=== PATIENT | female | born 1985 | race Caucasian/White ===

== ENCOUNTER 2017-07-21 12:12 | Emergency (ER) | payer OTHER ==
[2017-07-21] MEDS ORDERED: Sodium Chloride 0.9% 1000 ML 1,000 ML IV STA (13:12)
[2017-07-21] MEDS ORDERED: GI COCKTAIL 45 ML (Maalox/Lidocaine) PO ONE (13:12)
[2017-07-21] MEDS ORDERED: Zofran 4 MG/2 ML VIAL IV ONE (13:12)
[2017-07-21] MEDS ORDERED: Pepcid 20 MG VIAL IV ONE ×2 (13:12→13:34)
--- NOTE | 2017-07-21 13:12 | ERPHSYRPT ---
- History of Present Illness Time Seen by Provider: 07/21/17 13:02 Historian: patient Exam Limitations: no limitations Patient Subjective Stated Complaint: mid abd pain for three weeks. also having nausea with it. pain radiates into back and right shoulder. Triage Nursing Assessment: ambulating per self. skin w/d, color flushed. resp easy. holding abd. Physician History: The patient is a 32-year-old female complaining of daily intermittent epigastric pain for 3 weeks. The pain can occur 2-3 times a day. It can last for 30-60 minutes. The pain is relieved somewhat by eating. She is nauseated. Somedays she vomits. She has no diarrhea. She denies fever or chills. If she takes Tums, the pain is relieved for a brief period. She does not drink alcohol. Her past medical history is significant for "removal of her tubes". Timing/Duration: week(s) (3) Activities at Onset: none Quality: aching Abdominal Pain Onset Location: epigastric Pain Radiation: back Severity of Pain-Max: moderate Severity of Pain-Current: mild Modifying Factors: Improves With: eating, other (Tums) Associated Symptoms: nausea, vomiting, No heartburn Previous symptoms: no prior history Allergies/Adverse Reactions: No Known Drug Allergies Allergy (Unverified 07/21/17 12:26) Hx Tetanus, Diphtheria Vaccination/Date Given: Yes Hx Influenza Vaccination/Date Given: No Hx Pneumococcal Vaccination/Date Given: No - Review of Systems Constitutional: No Fever, No Chills Eyes: No Symptoms Ears, Nose, & Throat: No Symptoms Respiratory: No Cough, No Dyspnea Cardiac: No Chest Pain, No Edema, No Syncope Abdominal/Gastrointestinal: Abdominal Pain, Nausea, Vomiting, No Diarrhea Genitourinary Symptoms: No Dysuria Musculoskeletal: No Back Pain, No Neck Pain Skin: No Rash Neurological: No Dizziness, No Focal Weakness, No Sensory Changes Psychological: No Symptoms Endocrine: No Symptoms Hematologic/Lymphatic: No Symptoms Immunological/Allergic: No Symptoms All Other Systems: Reviewed and Negative - Past Medical History Pertinent Past Medical History: No - Past Surgical History Past Surgical History: No - Social History Smoking Status: Never smoker Exposure to second hand smoke: No Drug Use: none Patient Lives Alone: No - Female History Hx Last Menstrual Period: 06/23/17 Hx Now: No - Nursing Vital Signs Nursing Vital Signs: Initial Vital Signs Temperature 97.6 F 07/21/17 12:15 Pulse Rate 102 H 07/21/17 12:15 Respiratory Rate 18 07/21/17 12:15 Blood Pressure 152/103 07/21/17 12:15 O2 Sat by Pulse Oximetry 98 07/21/17 12:15 Pain Scale Pain Intensity 8 - Physical Exam General Appearance: no apparent distress, alert Eye Exam: PERRL/EOMI, eyes nml inspection Ears, Nose, Throat Exam: normal ENT inspection, pharynx normal, moist mucous membranes Neck Exam: normal inspection, non-tender, supple, full range of motion Respiratory Exam: normal breath sounds, lungs clear, No respiratory distress Cardiovascular Exam: regular rate/rhythm, normal heart sounds Gastrointestinal/Abdomen Exam: tenderness (epigastric) Pelvic Exam: not done Rectal Exam: not done Back Exam: normal inspection, normal range of motion, No CVA tenderness, No vertebral tenderness Extremity Exam: normal inspection, normal range of motion, pelvis stable Neurologic Exam: alert, oriented x 3, cooperative, normal mood/affect, nml cerebellar function, sensation nml, No motor deficits Skin Exam: normal color, warm, dry SpO2 Interpretation: normal SpO2: 98 Oxygen Delivery: Room Air - Radiology Exams Chest X-ray Interpretation: Reviewed by me, Teleradiologist Report, Negative (per Dr Henley) Abdomen X-ray Interpretation: Reviewed by me, Teleradiologist Report, Negative, Other ( cholelithiasis per Dr Henley) Ordered Tests: Active Orders 24 hr Category Date Time Status IV Insertion STAT Care 07/21/17 13:12 Active GALLBLADDER [US] Stat Exams 07/21/17 14:23 Completed OBSTR/ACUTE ABDOMEN SERIES Stat Exams 07/21/17 13:13 Completed AMYLASE Stat Lab 07/21/17 13:12 Completed CBC W DIFF Stat Lab 07/21/17 13:12 Completed CMP Stat Lab 07/21/17 13:12 Completed CULTURE,URINE Stat Lab 07/21/17 13:12 Received HCG QUALITATIVE,SERUM Stat Lab 07/21/17 13:12 Completed LIPASE Stat Lab 07/21/17 13:12 Completed Lactic Acid Stat Lab 07/21/17 13:23 Completed UA W/ MICROSCOPIC Stat Lab 07/21/17 13:12 Completed Medication Summary Discontinued Medications Generic Name Dose Route Start Last Admin Trade Name Freq PRN Reason Stop Dose Admin Al Hydrox/Mg Hydrox/Simethicone Confirm 07/21/17 13:35 Maalox Es 30 Ml Unit Dose Administered 07/21/17 13:36 Dose 30 ml .ROUTE .STK-MED ONE Famotidine 20 mg 07/21/17 13:12 07/21/17 13:37 Pepcid 20 Mg Vial IV 07/21/17 13:13 20 mg STAT ONE Administration Famotidine Confirm 07/21/17 13:34 Pepcid 20 Mg Vial Administered 07/21/17 13:35 Dose 20 mg IV .STK-MED ONE Sodium Chloride 1,000 mls @ 999 mls/hr 07/21/17 13:12 07/21/17 13:37 Sodium Chloride 0.9% 1000 Ml IV 07/21/17 14:12 999 mls/hr .Q1H1M STA Administration Sodium Chloride Confirm 07/21/17 13:35 Sodium Chloride 0.9% 1000 Ml Administered 07/21/17 13:36 Dose 1,000 mls @ ud .ROUTE .STK-MED ONE Lidocaine HCl Confirm 07/21/17 13:35 Xylocaine Hcl Viscous * Administered 07/21/17 13:36 Dose 15 ml .ROUTE .STK-MED ONE Magnesium Hydroxide 45 ml 07/21/17 13:12 07/21/17 13:37 Gi Cocktail 45 Ml (Maalox/Lidocaine) PO 07/21/17 13:13 45 ml STAT ONE Administration Ondansetron HCl 4 mg 07/21/17 13:12 07/21/17 13:37 Zofran 4 Mg/2 Ml Vial IV 07/21/17 13:13 4 mg STAT ONE Administration Ondansetron HCl Confirm 07/21/17 13:34 Zofran 4 Mg/2 Ml Vial Administered 07/21/17 13:35 Dose 4 mg .ROUTE .STK-MED ONE Lab/Rad Data: Laboratory Result Diagrams 07/21/17 13:12 07/21/17 13:12 Laboratory Results 07/21/17 07/21/17 07/21/17 Range/Units 13:23 13:12 13:12 WBC (4.0-10.5) K/mm3 RBC (4.1-5.4) M/mm3 Hgb (12.0-16.0) gm/dl Hct (35-47) % MCV (78-100) fl MCH (26-32) pg MCHC (32-36) g/dl RDW (11.5-14.0) % Plt Count (150-450) K/mm3 MPV (6-9.5) fl Gran % (36.0-66.0) % Lymphocytes % (24.0-44.0) % Monocytes % (0.0-12.0) % Eosinophils % (0.00-5.0) % Basophils % (0.0-0.4) % Basophils # (0-0.4) Sodium 140 (136-145) mEq/L Potassium 3.6 (3.5-5.1) mEq/L Chloride 105 (98-107) mEq/L Carbon Dioxide 21.2 (21-32) mEq/L Anion Gap 17.1 H (5-15) MEQ/L BUN 10 (9-20) mg/dL Creatinine 0.81 (0.55-1.30) mg/dl Estimated GFR > 60 ML/MIN Glucose 95 (70-110) MG/DL Lactic Acid 1.0 (0.4-2.0) Calcium 9.1 (8.5-10.1) mg/dL Total Bilirubin 1.10 H (0.2-1.0) mg/dL AST 18 (15-37) U/L ALT 20 (12-78) U/L Alkaline Phosphatase 91 (46-116) U/L Serum Total Protein 7.5 (6.4-8.2) gm/dL Albumin 3.7 (3.4-5.0) g/dL Amylase 24 L (25-115) U/L Lipase 77 (73-393) U/L Serum , Qual NEGATIVE (Negative) Ur Collection Type Urine Color (YELLOW) Urine Appearance (CLEAR) Urine pH (5-6) Ur Specific [place] (1.005-1.025) Urine Protein (Negative) Urine Ketones (NEGATIVE) Urine Blood (0-5) [place]/ul Urine Nitrite (NEGATIVE) Urine Bilirubin (NEGATIVE) Urine Urobilinogen (0-1) mg/dL Ur Leukocyte Esterase (NEGATIVE) Urine Microscopic WBC (0-5) /HPF Ur Epithelial Cells (FEW) /HPF Amorphous Crystals (NEGATIVE) /HPF Urine Bacteria (NEGATIVE) /HPF Urine Culture Reflexed (NO) Urine Glucose (NEGATIVE) mg/dL Specimen Received 07/21/17 07/21/17 Range/Units 13:12 13:12 WBC 8.2 (4.0-10.5) K/mm3 RBC 4.77 (4.1-5.4) M/mm3 Hgb 14.4 (12.0-16.0) gm/dl Hct 41.7 (35-47) % MCV 87.4 (78-100) fl MCH 30.2 (26-32) pg MCHC 34.5 (32-36) g/dl RDW 13.0 (11.5-14.0) % Plt Count 261 (150-450) K/mm3 MPV 11.6 H (6-9.5) fl Gran % 66.9 H (36.0-66.0) % Lymphocytes % 24.5 (24.0-44.0) % Monocytes % 6.0 (0.0-12.0) % Eosinophils % 2.4 (0.00-5.0) % Basophils % 0.2 (0.0-0.4) % Basophils # 0.02 (0-0.4) Sodium (136-145) mEq/L Potassium (3.5-5.1) mEq/L Chloride (98-107) mEq/L Carbon Dioxide (21-32) mEq/L Anion Gap (5-15) MEQ/L BUN (9-20) mg/dL Creatinine (0.55-1.30) mg/dl Estimated GFR ML/MIN Glucose (70-110) MG/DL Lactic Acid (0.4-2.0) Calcium (8.5-10.1) mg/dL Total Bilirubin (0.2-1.0) mg/dL AST (15-37) U/L ALT (12-78) U/L Alkaline Phosphatase (46-116) U/L Serum Total Protein (6.4-8.2) gm/dL Albumin (3.4-5.0) g/dL Amylase (25-115) U/L Lipase (73-393) U/L Serum , Qual (Negative) Ur Collection Type CLEAN CATCH Urine Color YELLOW (YELLOW) Urine Appearance CLOUDY (CLEAR) Urine pH 7.0 (5-6) Ur Specific [place] 1.015 (1.005-1.025) Urine Protein TRACE (Negative) Urine Ketones NEGATIVE (NEGATIVE) Urine Blood NEGATIVE (0-5) [place]/ul Urine Nitrite NEGATIVE (NEGATIVE) Urine Bilirubin NEGATIVE (NEGATIVE) Urine Urobilinogen NORMAL (0-1) mg/dL Ur Leukocyte Esterase NEGATIVE (NEGATIVE) Urine Microscopic WBC 2-5 (0-5) /HPF Ur Epithelial Cells MANY (FEW) /HPF Amorphous Crystals MODERATE (NEGATIVE) /HPF Urine Bacteria MODERATE (NEGATIVE) /HPF Urine Culture Reflexed YES (NO) Urine Glucose NEGATIVE (NEGATIVE) mg/dL Specimen Received 07/21/17 1330 - Progress Progress: improved Progress Note: 07/21/17 14:21 After a GI cocktail, the epigastric abd pain is subsided. Abd plain fillm shows large rimmed gallstone. Will order RUQ U/S. Counseled pt/family regarding: lab results, diagnosis, need for follow-up, rad results - Departure Time of Disposition: 16:58 Departure Disposition: Home Clinical Impression: Gastritis, Cholelithiasis Condition: Stable Critical Care Time: No Additional Instructions: You have gastritis. You were given Pepcid 20 mg, Zofran 4 mg, and fluids by IV. You were also given a GI cocktail orally. You also have gallstones. This was found both on the plain film x-ray and by ultrasound. Take Zofran 4 mg ODT every 6 hours as needed for nausea. You have been given a release to go back to work. Avoid fatty foods. Take Prilosec 20 mg daily. Follow-up within a week. Prescriptions: Ondansetron ODT 4 MG [Zofran Odt 4 mg] 1 tab PO Q6H PRN PRN #10 tab.rapdis PRN Reason: Nausea/Vomiting Omeprazole [Prilosec] 20 mg PO DAILY #14 capsule.
[2017-07-21 13:26] LABS: BASOPHIL % 0.2 % (0.0-0.4); Basophil (Absolute #) 0.02 (0-0.4); Eosinophil % 2.4 % (0.00-5.0); Granulocytes % 66.9 % (36.0-66.0); Hematocrit 41.7 % (35-47); Hemoglobin 14.4 gm/dl (12.0-16.0); Lymphocyte (Absolute #) 2.02 (1.0-4.6); Lymphocytes % 24.5 % (24.0-44.0); Mean Cell Volume 87.4 fl (78-100); Mean Corpuscular Hemoglobin 30.2 pg (26-32); Mean Corpuscular Hgb Concent. 34.5 g/dl (32-36); Mean Platelet Volume 11.6 fl (6-9.5); Monocyte (Absolute #) 0.49 (0.0-1.3); Platelet Count 261 K/mm3 (150-450); Red Blood Count 4.77 M/mm3 (4.1-5.4); White Blood Count 8.2 K/mm3 (4.0-10.5)
[2017-07-21] MEDS ORDERED: Zofran 4 MG/2 ML VIAL ONE (13:34)
[2017-07-21] MEDS ORDERED: MAALOX ES 30 ML UNIT DOSE ONE (13:35)
[2017-07-21] MEDS ORDERED: XYLOCAINE HCl Viscous ONE (13:35)
[2017-07-21] MEDS ORDERED: Sodium Chloride 0.9% 1000 ML 1,000 ML ONE (13:35)
[2017-07-21 13:37] LABS: Appearance CLOUDY (CLEAR); Bacteria MODERATE /HPF (NEGATIVE); Bilirubin NEGATIVE (NEGATIVE); Blood NEGATIVE Ery/ul (0-5); Epithelial Cells MANY /HPF (FEW); Glucose NEGATIVE (NEGATIVE); Ketones NEGATIVE (NEGATIVE); Leukocyte Esterase NEGATIVE (NEGATIVE); Nitrite NEGATIVE (NEGATIVE); Protein,Urine Dip TRACE (Negative); Specific Gravity 1.015 (1.005-1.025); Urobilinogen NORMAL mg/dL (0-1)
[2017-07-21 13:38] LABS: Amourphous Crystal MODERATE /HPF (NEGATIVE)
[2017-07-21 13:56] LABS: ALBUMIN 3.7 g/dL (3.4-5.0); ALKALINE PHOSPHATASE 91 U/L (46-116); AMYLASE 24 U/L (25-115); ANION GAP 17.1 MEQ/L (5-15); BLOOD UREA NITROGEN 10 mg/dL (9-20); CHLORIDE 105 mEq/L (98-107); Calcium 9.1 mg/dL (8.5-10.1); Carbon Dioxide 21.2 mEq/L (21-32); Creatinine 1 0.81 mg/dl (0.55-1.30); Glucose 95 MG/DL (70-110); LIPASE 77 U/L (73-393); Potassium 3.6 mEq/L (3.5-5.1); SGOT/AST 18 U/L (15-37); SGPT/ALT 20 U/L (12-78); SODIUM 140 mEq/L (136-145); Total Protein 7.5 gm/dL (6.4-8.2)
--- NOTE | 2017-07-21 14:11 | XRAY ---
Exam: Acute obstructive series from 07/21/2017. Comparison: None. Indication: Abdominal pain, vomiting, nausea. Findings: Upright PA chest film reveals a normal heart size and contour. I believe there is some minimal central bronchial wall thickening. Is this patient a smoker? The remainder the kole and mediastinal structures appears unremarkable. The peripheral lungs are well expanded and reveal no air space infiltrates, vascular congestion, pneumothorax, or pleural fluid. No acute osseous process is seen. An upright film of the abdomen and 2 supine images including the abdomen and pelvis were obtained. There appears to be a calcium rimmed gallstone within the right upper quadrant which I believe measures about 2.5 cm in greatest diameter. The bowel gas pattern appears unremarkable. No bowel obstruction or free intraperineal air is seen. The psoas muscle margins appear unremarkable. Moderate scattered stool is seen throughout the colon. No hepatosplenomegaly is seen. There is a small calcification within lower right pelvis, likely representing a phlebolith. Correlate clinically to exclude a distal ureteral stone. The bones appear intact. There is slight convexity of the mid lumbar spine toward the left on the upright view only. Impression: 1. I see no definite acute cardiopulmonary disease. There is a question of slight central bronchial wall thickening within the kole. Is this patient a smoker or have chronic bronchitis? 2. Cholelithiasis. 3. Nonspecific bowel gas pattern suggesting neither bowel obstruction or significant ileus. There is no free intraperitoneal air underneath the hemidiaphragms.
--- NOTE | 2017-07-21 15:35 | XRAY ---
Exam: Gallbladder ultrasound from 07/21/2017. Comparison: Acute obstructive series from 07/21/2017. Indication: Gallstones seen on earlier x-ray. Findings: The pancreas is only partially seen. A portion of the pancreatic head and distal tail of the pancreas are obscured by bowel gas. The gallbladder reveals a prominent mobile gallstone measuring at least 2.3 cm in diameter. This gallstone shadows. In addition, there is a suggestion of some smaller intraluminal gallstones. The gallbladder wall does not appear thickened measuring 2.7 mm in thickness. No pericholecystic edema or fluid is seen. The proximal common bile duct measures 5.4 mm which is towards the upper limits of normal. Normal hepatopetal portal vein flow is seen. No intrahepatic biliary duct distention is seen. The visualized liver appears of unremarkable size and uniform echotexture. The right kidney measures 10.7 cm x 4.15 cm x 5.9 cm. No right renal mass or hydronephrosis is seen. Impression: 1. Cholelithiasis, as described above. 2. No other significant abnormality is seen.
[2017-07-21 16:57] VITALS: BP 106/56; PULSE 75
[2017-07-21 17:05] VITALS: O2SAT 98
== END 2017-07-21 17:29 | disposition home or self-care (01) ==
LOC: ED 12:12
DX: K29.70 Gastritis, unspecified, without bleeding (principal); K80.20 Calculus of gallbladder without cholecystitis without obstruction; R11.0 Nausea
CPT/HCPCS: 36000; 36415; 74022; 76705; 80053; 81000; 82150; 83605; 83690; 84703; 85025; 87086; 96360; 96374; 96375; 99284; J2405; A9270-GY

== ENCOUNTER 2017-07-25 11:58 | Emergency (ER) | payer OTHER ==
[2017-07-25] MEDS ORDERED: ZOFRAN ODT 4 MG PO ONE (12:55)
[2017-07-25] MEDS ORDERED: ZOFRAN ODT 4 MG ONE (12:58)
[2017-07-25 13:00] VITALS: O2SAT 96
--- NOTE | 2017-07-25 13:00 | ERPHSYRPT ---
- History of Present Illness Time Seen by Provider: 07/25/17 12:11 Source: patient Patient Subjective Stated Complaint: Pt states "I was here last and they told me I had a gall stone. I was doing fine after I left until I ate pizza this weekend and I have pain and am vomiting." Triage Nursing Assessment: Pt alert and oriented X 3, skin pwd. Pt ambulates with an upright steady gait, able to speak in clear full setences. Pt coughing intermittantly. Physician History: CC: vomiting Hx: 32 y/o patient with hx of BTL currently on normal menses was here last week with gb sono showing cholelithiasis. She was given Rx for zofran but has been unable to fill it. She was told to have follow up but thus far has been unable to arrange. She ate pepparoni pizza over the weekend and has more vomiting. No fever or chills. No diarrhea. Normal urination. Allergies/Adverse Reactions: No Known Drug Allergies Allergy (Unverified 07/21/17 12:26) Hx Tetanus, Diphtheria Vaccination/Date Given: Yes Hx Influenza Vaccination/Date Given: No Hx Pneumococcal Vaccination/Date Given: No Immunizations Up to Date: Yes - Review of Systems Constitutional: No Fever, No Chills Eyes: No Symptoms Ears, Nose, & Throat: No Symptoms Respiratory: No Cough Cardiac: No Chest Pain Abdominal/Gastrointestinal: Nausea, Vomiting, No Abdominal Pain, No Diarrhea Genitourinary Symptoms: Vaginal Bleeding (menses), No Dysuria, No Skin: No Rash Neurological: No Headache All Other Systems: Reviewed and Negative - Past Medical History Pertinent Past Medical History: No - Past Surgical History Past Surgical History: No - Social History Smoking Status: Never smoker Exposure to second hand smoke: Yes Drug Use: none Patient Lives Alone: No - Female History Hx Last Menstrual Period: 07/25/2017 Hx Now: No - Nursing Vital Signs Nursing Vital Signs: Initial Vital Signs Temperature 97.7 F 07/25/17 12:10 Pulse Rate 102 H 07/25/17 12:10 Respiratory Rate 18 07/25/17 12:10 Blood Pressure 128/89 07/25/17 12:10 O2 Sat by Pulse Oximetry 96 07/25/17 12:10 Pain Scale Pain Intensity 0 - Physical Exam General Appearance: alert Eye Exam: PERRL/EOMI Ears, Nose, Throat Exam: normal ENT inspection, moist mucous membranes Neck Exam: normal inspection, non-tender, supple Respiratory Exam: normal breath sounds Cardiovascular Exam: regular rate/rhythm Gastrointestinal/Abdomen Exam: soft, No tenderness, No distention, No mass, No guarding Extremity Exam: normal inspection, normal range of motion, No pedal edema Neurologic Exam: alert, oriented x 3, cooperative, sensation nml, No motor deficits Skin Exam: warm, dry, No rash SpO2 Interpretation: normal SpO2: 96 Oxygen Delivery: Room Air - Course Nursing assessment & vital signs reviewed: Yes Ordered Tests: Active Orders 24 hr Category Date Time Status CBC W DIFF Stat Lab 07/25/17 13:10 Completed CMP Stat Lab 07/25/17 13:10 Completed HCG QUALITATIVE,SERUM Stat Lab 07/25/17 13:10 Completed LIPASE Stat Lab 07/25/17 13:10 Completed Medication Summary Discontinued Medications Generic Name Dose Route Start Last Admin Trade Name Freq PRN Reason Stop Dose Admin Ondansetron HCl 4 mg 07/25/17 12:55 07/25/17 12:58 Zofran Odt 4 Mg PO 07/25/17 12:56 4 mg STAT ONE Administration Ondansetron HCl Confirm 07/25/17 12:58 Zofran Odt 4 Mg Administered 07/25/17 12:59 Dose 4 mg .ROUTE .STK-MED ONE Lab/Rad Data: Laboratory Result Diagrams 07/25/17 13:10 07/25/17 13:10 Laboratory Results 07/25/17 07/25/17 07/25/17 Range/Units 13:10 13:10 13:10 WBC 9.0 (4.0-10.5) K/mm3 RBC 4.70 (4.1-5.4) M/mm3 Hgb 14.2 (12.0-16.0) gm/dl Hct 40.8 (35-47) % MCV 86.8 (78-100) fl MCH 30.2 (26-32) pg MCHC 34.8 (32-36) g/dl RDW 12.9 (11.5-14.0) % Plt Count 292 (150-450) K/mm3 MPV 12.0 H (6-9.5) fl Gran % 66.8 H (36.0-66.0) % Lymphocytes % 21.9 L (24.0-44.0) % Monocytes % 9.3 (0.0-12.0) % Eosinophils % 1.8 (0.00-5.0) % Basophils % 0.2 (0.0-0.4) % Basophils # 0.02 (0-0.4) Sodium 142 (137-145) mmol/L Potassium 3.8 (3.5-5.1) mmol/L Chloride 107 (98-107) mEq/L Carbon Dioxide 25 (22-30) mmol/L Anion Gap 14.0 MEQ/L BUN 8 (7-17) mg/dL Creatinine 0.60 (0.52-1.04) mg/dl Estimated GFR > 60 ML/MIN Glucose 83 (74-106) mg/dL Calcium 9.8 (8.4-10.2) mg/dL Total Bilirubin 0.40 (0.2-1.3) mg/dL AST 19 (14-36) U/L ALT 14 (0-35) U/L Alkaline Phosphatase 93 (38-126) U/L Serum Total Protein 6.8 (6.3-8.2) mg/dL Albumin 4.0 (3.5-5.0) g/dL Lipase 70 (23-300) U/L Serum , Qual NEGATIVE (Negative) - Progress Progress Note: 07/25/17 14:54 She is hungry and wants to eat. She is ready to go, school has called about a sick kid. Will release with instr for follow up. Counseled pt/family regarding: lab results, diagnosis, need for follow-up - Departure Time of Disposition: 14:54 Departure Disposition: Home Clinical Impression: Vomiting, Cholelithiasis Condition: Stable Critical Care Time: No Referrals: DOCTOR,NO FAMILY [Primary Care Provider] - Instructions: Vomiting -- Adult, Gallstones (DC) Additional Instructions: ABDOMINAL PAIN 1. There are several different causes for abdominal pain, some of which may not be able to be identified on initial examination. 2. The important thing to remember is that bodily functions can change in a short period of time. If you notice any of the following symptoms, return to the emergency department or consult your doctor immediately: A. Worsening pain or no improvement in the next 12 hours. B. Increasing, severe abdominal pain C. Blood in stool D. Black stools E. Persistent vomiting F. Fever or chills or other symptoms Get your prescription for zofran filled. Follow up with primary care or surgeon. [place], nonfatty diet. Prescriptions: Ondansetron ODT 4 MG [Zofran Odt 4 mg] 1 tab PO Q6H PRN PRN #10 tab.rapdis PRN Reason: Nausea/Vomiting
[2017-07-25 14:28] LABS: ALKALINE PHOSPHATASE 93 U/L (38-126); BLOOD UREA NITROGEN 8 mg/dL (7-17); CHLORIDE 107 mEq/L (98-107); Calcium 9.8 mg/dL (8.4-10.2); Carbon Dioxide 25 mmol/L (22-30); Glucose 83 mg/dL (74-106); LIPASE 70 U/L (23-300); Potassium 3.8 mmol/L (3.5-5.1); SGOT/AST 19 U/L (14-36); SGPT/ALT 14 U/L (0-35); SODIUM 142 mmol/L (137-145); Total Protein 6.8 mg/dL (6.3-8.2)
[2017-07-25 14:49] LABS: BASOPHIL % 0.2 % (0.0-0.4); Basophil (Absolute #) 0.02 (0-0.4); Eosinophil % 1.8 % (0.00-5.0); Eosinophil (Absolute #) 0.16 (0-0.5); Granulocyte Absolute (ANC) 5.98 (1.4-6.9); Granulocytes % 66.8 % (36.0-66.0); Hematocrit 40.8 % (35-47); Hemoglobin 14.2 gm/dl (12.0-16.0); Lymphocyte (Absolute #) 1.96 (1.0-4.6); Lymphocytes % 21.9 % (24.0-44.0); Mean Cell Volume 86.8 fl (78-100); Mean Corpuscular Hemoglobin 30.2 pg (26-32); Mean Corpuscular Hgb Concent. 34.8 g/dl (32-36); Monocyte (Absolute #) 0.83 (0.0-1.3); Monocytes % 9.3 % (0.0-12.0); Platelet Count 292 K/mm3 (150-450); Red Cell Distribution Width 12.9 % (11.5-14.0)
[2017-07-25 14:56] VITALS: BP 142/102; PULSE 82
== END 2017-07-25 15:03 | disposition home or self-care (01) ==
LOC: ED 11:58
DX: R11.10 Vomiting, unspecified (principal); K80.20 Calculus of gallbladder without cholecystitis without obstruction
CPT/HCPCS: 36415; 80053; 83690; 84703; 85025; 99283; Q0162